=== PATIENT | male | born 1945 | race Caucasian/White ===

== ENCOUNTER 2016-07-04 09:58 | Emergency (ER) | payer MEDICARE, OTHER ==
[~2016-07-04] VITALS: Ht 172.7 cm; Wt 109.1 kg
[~2016-07-04 09:58] MED LIST: COUMADIN 5MG5 MG/TAB PO; PROTONIX 40MG T40 MG PO; ZESTRIL 5MG5 MG PO; ZOCOR 10MG10 MG PO
[2016-07-04 10:03] VITALS: TEMP 97.7
[2016-07-04 12:08] VITALS: BP 158/89; PULSE 90
== END 2016-07-04 12:10 | disposition home or self-care (01) ==
LOC: COL.ER 09:58
DX: S09.90XA Unspecified injury of head, initial encounter (principal); T14.8 Other injury of unspecified body region; W01.198A Fall on same level from slipping, tripping and stumbling with subsequent striking against other object, initial encounter; S01.03XA Puncture wound without foreign body of scalp, initial encounter; Z79.01 Long term (current) use of anticoagulants; Z86.73 Personal history of transient ischemic attack (TIA), and cerebral infarction without residual deficits; I10 Essential (primary) hypertension; Z23 Encounter for immunization

== ENCOUNTER → 2017-12-31 | Outpatient (CLI) | payer MEDICARE, OTHER | LOC: COL.RAD 12:54 | DX: H81.01 Meniere's disease, right ear (principal); Z86.73 Personal history of transient ischemic attack (TIA), and cerebral infarction without residual deficits | CPT/HCPCS: A9585 ==

== ENCOUNTER → 2018-02-07 | Outpatient (CLI) | payer MEDICARE, OTHER | LOC: COL.RAD 08:02 | DX: M48.02 Spinal stenosis, cervical region (principal); M50.322 Other cervical disc degeneration at C5-C6 level; M46.92 Unspecified inflammatory spondylopathy, cervical region ==

== ENCOUNTER → 2018-03-05 | Outpatient (CLI) | payer MEDICARE, OTHER | LOC: MHCPAIN 15:24 | DX: G89.29 Other chronic pain (principal); M54.12 Radiculopathy, cervical region; M47.812 Spondylosis without myelopathy or radiculopathy, cervical region | CPT/HCPCS: G0463 ==